=== PATIENT | male | born 1980 | race Caucasian/White ===

== ENCOUNTER 2017-10-23 00:30 | Emergency (ER) | payer MEDICARE, OTHER ==
[~2017-10-23] VITALS: Ht 165.1 cm; Wt 81.6 kg
[2017-10-23 00:31] VITALS: BP 101/64
--- NOTE | 2017-10-23 03:04 | NUR ---
INFORMED "PT LEFT THE LOBBY LONG TIME AGO"
== END 2017-10-23 03:05 | disposition left against medical advice (07) ==
LOC: ER 00:31
DX: Z53.21 Procedure and treatment not carried out due to patient leaving prior to being seen by health care provider (principal)
CPT/HCPCS: A4606; Z7610